=== PATIENT | male | born 1965 | race Caucasian/White ===

== ENCOUNTER 2018-10-04 13:02 | Emergency (ER) | payer SELFPAY ==
[~2018-10-04] VITALS: Ht 172.7 cm; Wt 68.0 kg
--- OUTSIDE RECORDS SUMMARY | 2018-10-04 13:06 | XMS REPORT | Clinical Summary ---
Author Author [facility] Address Unknown Phone Unavailable Care Team Providers Care Vehicle Return Associate Name Role Phone Alee Aldana MD PCP Allergies No Known Allergies Medications Not on file Active Problems Not on file Social History Date Tobacco Use Types Packs/Day Years Used Current Some Day Smoker Cigarettes 1 25 Alcohol Use Drinks/Week oz/Week Comments Yes 1 Glasses of 1.2 wine 1 Cans of beer Sex Assigned at Date Recorded Not on file Industry Job Start Date Occupation Not on file Not on file Not on file Travel End Travel History Travel Start No recent travel history available. Last Filed Vital Signs Not on file Plan of Treatment Health Maintenance Due Date Last Done Comments COLONOSCOPY SCREENING 05/24/2015 SHINGLES VACCINES (#1) 05/24/2015 INFLUENZA VACCINE 10/21/2018 Results Not on fileafter 10/03/2017 Advance Directives Patient has advance care planning documents on file. For more information, ata car contact: Tu Torres [address] [place] [address]
--- OUTSIDE RECORDS SUMMARY | 2018-10-04 13:07 | XMS REPORT ---
Author Author [facility] Address Unknown Phone Unavailable Care Team Providers Care General Office Clerk Name Role Phone RODRIGO Tish WILKES Unavailable Unavailable Problems This patient has no known problems. Allergies, Adverse Reactions, Alerts This patient has no known allergies or adverse reactions. Medications This patient has no known medications. Results Test Description Test Time Test Comments Text Results Atomic Results Result Comments CT BRAIN WO [address] [address] Patient Name: ANH ALVARADO MR #: [id number] : 1965 Age/Sex: 51/M Req #: [id number] Adm Physician: Ordered by: CHUNG WALLACE MD Report #: [id number] Location: ER Room/Bed: Procedure: [id number] CT/CT BRAIN WO Exam Date: 01/20/17 Exam Time: 2057 REPORT STATUS: Signed EXAMINATION: Head CT without contrast. HISTORY:Altered mental status, status post fall. COMPARISON:None. TECHNIQUE: Multidetector axial images were obtained from the foramen magnum to the vertex without contrast. The images were reconstructed using brain and bone algorithms. Thin section brain images were reformatted into coronal and sagittal planes. Intravenous contrast: None IMAGE QUALITY: Acceptable. FINDINGS: Skull/scalp: No abnormality. Parenchyma: No abnormal density. No acute hemorrhage, mass or acute major vascular territorial infarct. Arteries: No density suggestive of thrombosis. Dural sinuses: No abnormal density suggestive of thrombosis. Ventricles: No hydrocephalus or displacement. Extra-axial spaces: No abnormal density. Brain volume: Mild ge neralized cerebral volume loss. Craniocervical junction: No mass, Chiari malformation, or basilar invagination. Sella: No mass. Paranasal/mastoid sinuses: Imaged portions unremarkable. IMPRESSION: No acute intracranial abnormality. Mild generalized cerebral volume loss. Signed by: Dr. Deisy Eid M.D. on 01/20/2017 9:48 PM Dictated By: DEISY EID MD 47 Transcribed By: SANJUANITA on 01/20/172147 COPY TO: CHUNG WALLACE MD CHEST SINGLE (PORTABLE) [place] [address] Patient Name: ANH ALVARADO MR #: [id number] : 1965 Age/Sex: 51/M Req #: [id number] Adm Physician: Ordered by: ANKIT MALAVE MD Report #: [id number] Location: ER Room/Bed: Procedure: [id number] DX/CHEST SINGLE (PORTABLE) Exam Date: 01/20/17 Exam Time: 1500 REPORT STATUS: Signed PROCEDURE: A single AP view of the chest. COMPARISON: None. INDICATIONS: LETHARGIC FINDINGS: Lines/tubes: None. Lungs: The lungs are well inflated and clear. There is no evidence of pneumonia or pulmonary edema. Pleura: There is no pleural effusion or pneumothorax. Heart and mediastinum: The heart and the mediastinum are unremarkable. Bones: No acute bony abnormality. IMPRESSION: 1. No acute cardiopulmonary disease. Dictated by: Pedro Pablo Ty M.D. on 01/20/2017 at 15:27 Electronically approved by: Pedro Pablo Ty M.D. on 01/20/2017 at 15:27 Dictated By: PEDRO PABLO TY MD 152 Transcribed By: LOIS on 01/20/17 152 COPY TO: ANKIT MALAVE MD
[2018-10-04] MEDS ORDERED: HYDROCODONE/APAP 10MG-325MG TAB PO ONE (14:00)
[2018-10-04 15:06] VITALS: BP 113/99
== END 2018-10-04 15:15 | disposition home or self-care (01) ==
LOC: ER 13:02
DX: L02.212 Cutaneous abscess of back [any part, except buttock and flank] (principal)
CPT/HCPCS: 10060; 99283